=== PATIENT | female | born 2000 | race Caucasian/White ===

== ENCOUNTER 2020-11-11 02:53 | Emergency (ER) | payer BC ==
[~2020-11-11] VITALS: Ht 170.2 cm; Wt 72.7 kg
[2020-11-11 04:46] LABS: BASO # 0.1 (0.0-0.2); BASO % 0.4 % (0.0-2.0); EOS # 0.2 (0.0-0.7); EOS % 2.1 % (0-4.0); GRAN # 8.6 (1.4-6.5); GRAN % 75.2 % (42.2-75.2); HEMATOCRIT 41.3 % (35.0-45.0); HEMOGLOBIN 13.9 g/dl (12.0-15.0); LYMPH # 1.5 (1.2-3.4); LYMPH % 13.3 % (20.0-51.0); MEAN CELL VOLUME 87 fl (80.0-95.0); MEAN CORPUSCULAR HEMOGLOBIN 29 pg (26.0-32.0); MEAN CORPUSCULAR HGB CONC 34 g/dl (33.0-37.0); MEAN PLATELET VOLUME 9.2 fl (7.4-10.4); MONO % 8.7 % (1.7-9.3); PLATELET COUNT 270 K/mm3 (130-400); RED BLOOD COUNT 4.73 M/mm3 (4.10-5.30)
[2020-11-11 04:56] LABS: ALBUMIN 4.2 gm/dL (3.5-5.0); BILIRUBIN,TOTAL 0.6 mg/dL (0.0-1.0); CALCIUM 9.3 mg/dL (8.4-10.2); CREATININE, serum 0.89 (0.52-1.25); POTASSIUM 3.8 mmol/L (3.4-5.0); TOTAL PROTEIN 7.7 gm/dL (6.4-8.2)
[2020-11-11] MEDS ORDERED: BUSPAR10 MG PO (06:19)
[2020-11-11] MEDS ORDERED: TRI FEMYNOR 281 EACH PO (06:20)
[2020-11-11] MEDS ORDERED: PROAIR HFA0.09 MG/AC IH (06:20)
[2020-11-11] MEDS ORDERED: VITAMIN D 400400 IU PO (06:21)
[2020-11-11] MEDS ORDERED: PREDNISONE20 MG PO (06:45)
[2020-11-11] MEDS ORDERED: DOXYCYCLINE 10100 MG PO (06:45)
[2020-11-11 08:01] VITALS: BP 129/75; PULSE 117; TEMP 98.2
== END 2020-11-11 08:01 | disposition home or self-care (01) ==
LOC: COL.ER 02:53
PROVIDERS: Emergency Medicine
DX: J45.901 Unspecified asthma with (acute) exacerbation (principal); D72.829 Elevated white blood cell count, unspecified; R00.0 Tachycardia, unspecified; F41.9 Anxiety disorder, unspecified; Z20.822 Contact with and (suspected) exposure to COVID-19; Z32.02 Encounter for pregnancy test, result negative; Z79.51 Long term (current) use of inhaled steroids
CPT/HCPCS: J2930; J7030